=== PATIENT | female | born 1975 ===

== ENCOUNTER 2020-04-17 09:19 | Outpatient (REF) | payer SELFPAY ==
[2020-04-17 09:54] LABS: Cholesterol 190 mg/dL
== END 2020-04-17 09:20 | disposition home or self-care (01) ==
LOC: HO.LNC 09:19
PROVIDERS: Visit Provider Pathology Anatomic Pathology & Clinical Pathology
DX: Z13.89 Encounter for screening for other disorder (principal)
CPT/HCPCS: 36415; 82465